=== PATIENT | male | born 1940 | race Two or more races ===

== ENCOUNTER 2025-04-18 21:27 | Emergency (ER) | payer MEDICARE, MEDICAID, SELFPAY ==
[2025-04-18 21:30] VITALS: BMI 21.4
[2025-04-18 21:40] VITALS: BP 141/73; PULSE 70; RESP 20; TEMP 36.7; O2SAT 100
--- NOTE | 2025-04-18 21:50 | XR_ITS ---
: Examination: CT soft tissue neck, with intravenous contrast. 2-D coronal reconstructions. 2-D sagittal reconstructions. Date and time of exam : April 19, 2025, 0030 hours INDICATIONS: Onset neck pain radiating to the ears 2 weeks. CTDI: vol (mGy): 10.42 DLP: (mGycm): 312 Technique: 1.25 mm axial sections of the neck of the obtained. Coronal and sagittal reconstructions have been obtained. Intravenous contrast administered 50 cc [id number]. Low dose protocols were performed. One or more of the following dose reduction techniques were used; automated exposure control, adjustment of the mA and/or KV according to patient size, use of iterative reconstruction technique. Findings: Symmetrical nasopharynx oropharynx No pathologic cervical lymphadenopathy. The larynx appears normal No thyroid nodules Symmetrical submandibular glands Normal epiglottis Advanced degenerative disc disease C5-C6, C6-C7 IMPRESSION: No soft tissue neck mass Consider ultrasound soft tissue neck follow-up of any palpable mass Advanced degenerative disc disease C5-C6, C6-C7
[2025-04-18 22:57] LABS: Basophils # (Auto) 0.0 Thou/mm3 (0.0-0.2); Basophils % (Auto) 1 % (0-2.5); Eosinophils # (Auto) 0.1 Thou/mm3 (0.0-0.5); Eosinophils % (Auto) 2 % (0-10); Hematocrit 40.1 % (41.0-53.0); Hemoglobin 13.2 g/dL (13.5-16.0); Immature Granulocytes Auto 0.02 Thou/mm3 (0.00-0.00); Lymphocytes # (Auto) 1.6 Thou/mm3 (1.0-4.8); Lymphocytes % (Auto) 20 % (10-50); Mean Corpuscular HGB Conc 32.9 g/dl (31.0-37.0); Mean Corpuscular Hemoglobin 30.7 pg (25.0-35.0); Mean Corpuscular Volume 93 fL (80-100); Monocytes # (Auto) 0.5 Thou/mm3 (0.0-0.8); Monocytes % (Auto) 6 % (0-12); Neutrophils # (Auto) 5.7 Thou/mm3 (1.8-7.7); Neutrophils % (Auto) 71 % (37-80); Nucleated Red Blood Cell # 0.00 Thou/mm3 (0.00-0.00); Nucleated Red Blood Cell % 0 /100 WBC (0); Platelet Count 141 Thou/mm3 (140-440); RDW Standard Deviation 45.5 fL (35.1-43.9); Red Blood Count 4.30 Miln/mm3 (4.50-5.90); White Blood Count 8.0 Thou/mm3 (3.8-10.6)
[2025-04-18 23:00] LABS: Strep A Rapid Negative (Negative)
[2025-04-18 23:17] LABS: Alanine Aminotransferase 20 U/L (10-49); Albumin, Serum 4.5 gm/dL (3.4-4.8); Albumin/Globulin Ratio 1.4 (1.2-2.2); Alkaline Phosphatase 124 U/L (46-116); Anion Gap 11 (7-16); Aspartate Amino Transferase 26 U/L (0-34); BUN/Creatinine Ratio 15 Ratio (12-20); Bilirubin,Total 0.8 mg/dL (0.3-1.2); Blood Urea Nitrogen 17 mg/dL (9-23); Calcium 10.1 mg/dL (8.3-10.6); Calcium (Corrected) 10.1 mg/dL (8.5-10.1); Carbon Dioxide 26.8 mMol/L (20.0-31.0); Chloride 110 mMol/L (98-107); Creatinine (Component) 1.1 mg/dL (0.6-1.3); Estimated Creatinine Clearance 41.4 mL/min (>60); Globulin 3.2 gm/dL (2.3-3.5); Glucose 120 mg/dL (74-106); Osmolality,Calculated 296 (275-295); Potassium 4.2 mMol/L (3.4-5.1); Sodium 148 mMol/L (136-145); Total Protein 7.7 gm/dL (5.7-8.2); eGFR > 60 See Note
[2025-04-19] MEDS: SODIUM CHLORIDE 0.9% 1000 ML 1,000 ML 999 ML IV (00:22)
--- NOTE | 2025-04-19 01:29 | PRELIM_ITS ---
CT scan of the neck with intravenous contrast (axial sections with sagittal and coronal reformats) April 19, 2025 0034 hours Clinical History: Neck pain Comparison: None available at the time of this report. Findings: The nasopharynx, oropharynx, hypopharynx, supraglottic and infraglottic larynx, vocal cords and upper trachea are unremarkable. The epiglottis and aryepiglottic folds appear unremarkable. No enhancing lesion or fluid collection is identified. The vessels of the neck are well opacified. No filling defect is seen. The superficial soft tissues of the neck are unremarkable. Degenerative changes of the imaged portions of the spine. No acute fractures. 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 Impression: Degenerative changes of the cervical spine with multilevel disc disease. Consider correlation with MRI of the cervical spine. Report Electronically Signed By: Rafi Bauman 04/19/2025 1:28:13 AM [EST]
[2025-04-19 02:10] VITALS: BP 161/70; PULSE 60; RESP 17; TEMP 36.8; O2SAT 96
--- NOTE | 2025-04-19 02:13 | PD.EDDENTL ---
ED Dental RME/HPI General Chief complaint: Dental/Oral/Throat Stated complaint: THROAT PAIN THAT RADIATES TO EAR X2 WEEKS Time Seen by Provider: 04/18/25 21:45 Arrival date/time: 04/18/25 21:27 This is a case of 84-year-old male with no medical history came in in the emergency room due to sore throat and oral pain for the 2 weeks worsening of the pain now radiating to the both ear thus patient decided to sought consult here in the emergency room Limitations: no limitations Related Data Previous Rx's ?Medication ?Instructions ?Recorded acetaminophen 300 mg-codeine 30 mg 1 tab PO BID #10 tabs 12/12/17 tablet (Tylenol-Codeine #3) cyclobenzaprine 5 mg tablet 5 mg PO HS #10 tabs 12/12/17 amoxicillin 500 mg tablet 500 mg PO Q8H #30 tabs 04/19/25 lidocaine HCl 2 % mucosal solution 10 ml PO Q4HR PRN sore throat #100 04/19/25 (Lidocaine Viscous) mL nystatin 100,000 unit/mL oral 5 ml PO Q6H 5 days #100 mL 04/19/25 suspension Allergies Allergy/AdvReac Type Severity Reaction Status Date / Time No Known Allergies Allergy Verified 04/18/25 21:30 Review of Systems Review of Systems Systems Reviewed: All systems reviewed, normal except as documented Constitutional Constitutional: Reports system reviewed and no additional complaints, except as documented and Reports as per HPI Cardiovascular Cardiovascular: Reports system reviewed and no additional complaints, except as documented and Reports as per HPI Respiratory Respiratory: Reports system reviewed and no additional complaints, except as documented and Reports as per HPI Gastrointestinal Gastrointestinal: Reports system reviewed and no additional complaints, except as documented and Reports as per HPI Musculoskeletal Musculoskeletal: Reports system reviewed and no additional complaints, except as documented and Reports as per HPI Neurologic Neurologic: Reports system reviewed and no additional complaints, except as documented and Reports as per HPI Past Medical History Past Medical History CARDIAC: Negative Cardiac Disorders RESPIRATORY: Negative Asthma GENITOURINARY: Negative Renal Disease ENDOCRINE: Positive Diabetes Mellitus Type 2 HEMATOLOGIC: Negative Sickle Cell Disease Social History SMOKING STATUS: Former smoker ED Exam General Limitations: Present no limitations General appearance: Present alert, in no apparent distress and other (Patient is awake alert oriented not in distress nontoxic looking well-hydrated well-nourished) Head Head exam: Present atraumatic, normocephalic and normal inspection Eye Eye exam: Present normal appearance, PERRL and EOMI ENT ENT exam: Present normal exam, normal oropharynx, mucous membranes moist and other (Both ear and nose were normal exam bilateral tonsils red swollen with exudate but no peritonsillar abscess no drooling of saliva no muffled voice no hot potato) Expanded ENT Exam Mouth exam: Present other (Oral thrush on the tongue) Neck Neck exam: Present normal inspection, full ROM and trachea midline; Absent tenderness, meningismus, lymphadenopathy or thyromegaly Chest Chest inspection: Present normal inspection and symmetric chest wall rise Respiratory Respiratory exam: Present normal lung sounds bilaterally; Absent respiratory distress, wheezes, stridor, accessory muscle use or prolonged expiratory phase Cardiovascular Cardiovascular exam: Present regular rate, normal rhythm and normal heart sounds; Absent bradycardia, tachycardia, irregular rhythm, systolic murmur or diastolic murmur Abdominal Exam Abdominal exam: Present soft and normal bowel sounds; Absent distention, tenderness, guarding, rebound, rigidity, diminished bowel sounds, hyperactive bowel sounds, hypoactive bowel sounds or organomegaly Extremities Exam Extremities exam: Present normal inspection and full ROM Back Exam Back exam: Present normal inspection and full ROM Neurological Exam Neurological exam: Present alert, oriented X3, CN II-XII intact, normal gait and reflexes normal; Absent motor sensory deficit Psychiatric Psychiatric exam: Present normal affect and normal mood Skin Skin exam: Present warm, dry, intact and normal color Course Quality Measures none Orders Category Date Time Status CT Screening NOW Care 04/18/25 21:50 Active Insert IV NOW Care 04/19/25 00:[address] soft tissue neck w con Stat Exams 04/18/25 21:50 Taken CBC Stat Lab 04/18/25 22:30 Completed CMP [Comprehensive Metabolic Panel] Stat Lab 04/18/25 22:30 Completed Strep A Rapid Stat Lab 04/18/25 21:52 Completed Sodium Chloride 0.9% 1000 ml [Ns] 1,000 ml Med 04/19/25 00:17 Discontinued IV 999 mls/hr Vital Signs Vital signs: Vital Signs Temperature 98.1 F 04/18/25 21:40 Pulse Rate 70 04/18/25 21:40 Respiratory Rate 20 04/18/25 21:40 Blood Pressure 141/73 H 04/18/25 21:40 Pulse Oximetry (%) 100 04/18/25 21:40 Oxygen Delivery Method Room Air 04/18/25 21:40 Oxygen saturation is 100% in room air normal Dental / Oral MDM Narrative MDM Narrative:: This is a case of 84-year-old male with no medical history came in in the emergency room due to sore throat and oral pain for the 2 weeks worsening of the pain now radiating to the both ear thus patient decided to sought consult here in the emergency room physical examination patient is awake alert oriented not in distress nontoxic looking well-hydrated well-nourished noted to have bilateral tonsils swollen red with exudate but no peritonsillar abscess no muffled voice no hot potato voice no drooling of saliva both ear canal and tympanic membrane were normal no lymphadenopathy no mass or neck mass noted noted the tongue white patches suggestive of oral thrush the rest of the physical examination neurological exam is normal and unremarkable blood test showed no leukocytosis no anemia kidney and liver function is normal no electrolyte imbalance patient CT scan of the neck were normal no peritonsillar abscess patient was given a bolus of normal saline per patient request patient states that he was not able to eat due to oral pain patient was discharged with amoxicillin for tonsillitis and nystatin for oral thrush lidocaine viscous for oral pain patient will follow-up with PCP in 2 days for reevaluation worsening persistent or any emergent concern return precaution in the ER was advised Patient was discharged with comfortable condition walking with stable gait. Patient verbalized no further complains explained diagnosis and answered patient question. Patient is comfortable with the proposed management plan including the need to follow up with his/her primary care physician and any specialist if applicable Discussed patient for any urgent condition or worsening sx, He/She needed to go to emergency room immediately or call 911. Patient acknowledge the responsibility to follow up as instructed and to monitor her/his symptoms. For any persistence of the symptoms for more than 3-5 days return precaution advised. Discussed the result of the test and was given printed discharge instruction Patient data External records reviewed:: [facility] previous records Clinical information provided by:: patient Social determinants that could affect healthcare access:: none Patient has the following chronic illnesses:: None How is presenting disease/condition affected by chronic disease/condition?: no chronic disease Evaluation data The following diagnostics were reviewed and interpreted by me:: lab results and radiology exam(s) Lab and/or radiology exams considered but not ordered:: Reviewed Interpretation Summary: Reviewed Medications / Prescriptions Medications or Prescriptions considered but not ordered:: Given Medication administrations:: Medication Administration History Discontinued Medications Sodium Chloride (Ns) 1,000 mls @ 999 mls/hr IV .Q1H1M ONE Stop: 04/19/25 01:17 Last Infusion: 04/19/25 01:18 Dose: Infused Documented By: Admin: 04/19/25 00:22 Dose: 999 mls/hr Documented By: BD Given Consultations Consultation(s) initiated? (list below): No Diagnosis Dental Differential Diagnosis: other (Tonsillitis oral thrush) Most likely diagnosis given after review of the tests above:: Tonsillitis oral thrush Admission Indicated Admission indicated?: not indicated Explain why admission is indicated or not indicated:: Not indicated Admission Request Was there a request for admission?: No Admission Attestation Admission request attestation: Not indicated Disposition Plan Disposition Plan: Discharge Discharge Attestation Discharge Attestation: The patient and all family members were given an opportunity to ask questions and understood the discharge instructions. Discharge instructions specifically effects, indications for sooner follow up or return to the emergency department, and the expected course of current diagnosis. Patient condition: Stable Discharge Plan Plan Patient Disposition: HOME (Self Care) Patient condition on transfer: Stable Prescriptions/Referrals Prescriptions/Med Rec: New amoxicillin 500 mg tablet 500 mg PO Q8H Qty: 30 0RF nystatin 100,000 unit/mL suspension 5 ml PO Q6H 5 Days Qty: 100 0RF Rx Instructions: swish and swallow lidocaine HCl [Lidocaine Viscous] 2 % solution 10 ml PO Q4HR PRN (Reason: sore throat) Qty: 100 0RF No Action acetaminophen-codeine [Tylenol-Codeine #3] 300-30 mg tablet 1 tab PO BID Qty: 10 0RF cyclobenzaprine 5 mg tablet 5 mg PO HS Qty: 10 0RF Referrals: No Primary/Family,Physician [Primary Care Provider] - In 1 week Problem List Clinical Impression: Acute tonsillitis, Oral thrush Patient/Caregiver Discharge Instructions Education Materials: Tonsillitis in Adults, Jada Infection: Thrush Additional Instructions: Follow-up with your primary care physician in 2 days for reevaluation worsening symptoms or any emergent condition call 911 or go to the nearest emergency room take your medication as directed finish the course of antibiotic oral care is advised warm saline gargle is advised keep hydrated Print Language: [place] Stand Alone Forms: Shilpa Award Info., Patient Portal Info Letter PA/FOOD PRODUCTION MANAGER Supervising Physician PA/FOOD PRODUCTION MANAGER Supervising Physician: Dr. Gertrudis Liao
== END 2025-04-19 02:32 | disposition home or self-care (01) ==
PROVIDERS: Nurse Practitioner Family; Emergency Provider Emergency Medicine
DX: J03.90 Acute tonsillitis, unspecified (principal); B37.0 Candidal stomatitis
CPT/HCPCS: 36415; 70491; 80053; 85025; 87651; 96360; 99283; A4649; J7030; Q9967